=== PATIENT | male | born 1980 | race Caucasian/White ===

== ENCOUNTER 2020-08-20 20:43 | Emergency (ER) | payer OTHER, MEDICAID ==
[~2020-08-20] VITALS: Ht 182.9 cm; Wt 59.0 kg
[2020-08-20 20:50] VITALS: BP 132/76
--- NOTE | 2020-08-20 21:47 | NUR ---
BIBA TO ER BED 13
--- NOTE | 2020-08-20 21:55 | NUR ---
PT PLACED IN ED HALLWAY BED 13 INFRONT OF NURSING STATION. PT WITHIN SIGHT.
--- NOTE | 2020-08-20 22:00 | NUR ---
40 Y/O MALE BIBA FROM [facility] FOR REFUSING WOUND CARE AND TREATMENT FROM FACILITY. PT PRESENTS LAYING IN BED. HE REPORTS BEING PARAPLEGIC. LUNG SOUNDS WERE CLEAR THROUGHOUT. HERAT WAS EVEN AND REGULAR. PT NOTED ONLY ABLE TO MOVE UPPER EXTREMITIES WITHOUT ANY DIFFICULTY. PATIENT BED WAS LOCKED AND PLACED IN LOWEST POSITION. IN ED HALLWAY IN FRONT OF NURSING STAION IN SIGHT OF PRIMARY NURSE. pmhx: PARAPLEGIA, sepsis,focal wounds, muscle spasms & CHRONIC PAIN. allx: PCN
--- NOTE | 2020-08-20 22:45 | NUR ---
PT REFUSED BLOOD CULTURES AT THIS TIME STATING, "NO I DONT WANT YOU TO STICK ME I AM IN PAIN". NOTIFIED DR. HURTADO NOTIFIED AGREED TO SPEAK WITH PT.
--- NOTE | 2020-08-20 23:03 | NUR ---
ER MD DR. HURTADO EVALUATING PT.
[2020-08-20] MEDS ORDERED: LORazepam 2 MG/ML VIAL IVP ONE (23:05)
--- NOTE | 2020-08-20 23:05 | NUR ---
PT AGREED TO BLOOD CULTURES AT THIS TIME CALLED AND SPOKE TO LAB FOR RE-ATTEMPT OF REDRAW.
[2020-08-20 23:30] LABS: BASOPHILS # (AUTO) 0.1 K/uL (0.00-0.22); BASOPHILS % (AUTO) 0.7 % (0.0-2.0); EOSINOPHILS # (AUTO) 0.1 K/uL (0-0.4); EOSINOPHILS % (AUTO) 0.7 % (0.0-4.0); HEMATOCRIT 37.7 % (36-52); HEMOGLOBIN 12.4 g/dL (12.0-18.0); LYMPHOCYTES # (AUTO) 0.9 K/uL (2.0-11.5); LYMPHOCYTES % (AUTO) 7.4 % (20.5-51.1); MEAN CORPUSCULAR HEMOGLOBIN 27 pg (27-31); MEAN CORPUSCULAR HGB CONC 33 g/dL (33-37); MEAN CORPUSCULAR VOLUME 82.8 fL (80-94); MONOCYTES # (AUTO) 0.7 K/uL (0.8-1.0); MONOCYTES % (AUTO) 6.2 % (1.7-9.3); NEUTROPHILS # (AUTO) 10.2 K/uL (1.8-7.7); PLATELET COUNT (AUTO) 361 K/uL (140-450); RED BLOOD CELL COUNT(AUTO) 4.56 MIL/uL (4.20-6.10); RED CELL DISTRIBUTION WIDTH 18.5 % (11.6-13.7)
--- NOTE | 2020-08-20 23:30 | NUR ---
GEOGRAPHY DEPARTMENT CHAIR MIRANDA AT BEDSIDE FOR BLOOD DRAWN.
[2020-08-20 23:55] LABS: CARBON DIOXIDE 27.6 mmol/L (21-32); CREATININE 0.8 mg/dL (0.6-1.3); POTASSIUM 3.6 mmol/L (3.5-5.1); TOTAL BILIRUBIN 0.3 mg/dL (0.0-1.0)
[2020-08-21 00:03] LABS: APPEARANCE,URINE CLOUDY (CLEAR); BILIRUBIN,URINE 2+ (NEGATIVE); BLOOD, URINE 3+ (NEGATIVE); COLOR,URINE YELLOW (YELLOW); LEUKOCYTE ESTERASE ,URINE 2+ (NEGATIVE); NITRITE, URINE POSITIVE (NEGATIVE); UGLUCOSE NEGATIVE (NEGATIVE)
[2020-08-21 00:19] LABS: RBC,URINE 11-20 (MOD) /HPF (0-5); WBC,URINE TOO MANY TO COUNT /HPF (0-5)
[2020-08-21 00:21] LABS: YEAST,URINE Moderate /HPF (None Seen)
[2020-08-21] MEDS ORDERED: cefTRIAXone 1,000 MG VIAL ONE ×2 (00:45→08:21)
--- NOTE | 2020-08-21 01:20 | NUR ---
ER MD DR. HURTADO RE-EVALUATING PT.
[2020-08-21] MEDS ORDERED: FLUCONAZOLE 100 MG TAB PO ONE (01:25)
[2020-08-21] MEDS ORDERED: LORazepam 2 MG/ML VIAL IVP ONE ×3 (01:25→14:35)
[2020-08-21] MEDS ORDERED: CRUSHER, PILL MC ONE (01:36)
--- NOTE | 2020-08-21 01:46 | NUR ---
PT LAYING IN SEMI-FOWLERS POSITION IN ED HALLWAY BED 13 IN NO ACUTE DISTRESS NOTED BREATHING EVEN AND UNLABORED EVIDENCE BY RISE AND FALL OF CHEST WALL. VSS, HE IS AWAKE ALERT AND ORIENTED. COLOSTOMY BAG CHANGED AT THIS TIME. PT WAS NOTED WITH LARGE AMOUNT OF DARK BROWN COLOR STOOL SOFT IN CONSISTENCY. PT IS AT SIGHT OF NURSING STATION. WILL CONTINUE TO MONITOR.
--- NOTE | 2020-08-21 03:51 | NUR ---
PT LAYING IN SEMI-FOWLERS POSITION IN ED HALLWAY BED 13 IN NO ACUTE DISTRESS NOTED BREATHING EVEN AND UNLABORED EVIDENCE BY RISE AND FALL OF CHEST WALL. VSS, HE IS AWAKE ALERT AND ORIENTED. PT IS WITHIN SIGHT OF NURSING STATION. WILL CONTINUE TO MONITOR.
[2020-08-21 05:22] VITALS: BP 110/80
--- NOTE | 2020-08-21 05:23 | NUR ---
PT PENDING D/C AT THIS TIME. [facility] UNWILLING TO TAKE PATIENT BACK WILL REFER PT TO CASE MANAGEMENT FOR POSSIBLE PLACEMENT OF CARE. WILL ENDORSE TO AM PRIMARY NURSE.
--- NOTE | 2020-08-21 05:53 | NUR ---
EMPTIED PT'S CRONIN CATHETER WITH APPROXIMATELY 400 ML OF DARK URINE. NO FOUL ODOR.
--- NOTE | 2020-08-21 07:15 | NUR ---
Pharmacy contacted for rocephin 1000mg vials for 709 medication administration. Will administer when stocked.
--- NOTE | 2020-08-21 07:27 | NUR ---
REPORT GIVEN TO KATLIN HUGGINS FOR CONTINUITY OF CARE.
--- NOTE | 2020-08-21 07:27 | NUR ---
Received report from BHAVNA Nicole. Transfer of care at this time.
--- NOTE | 2020-08-21 07:38 | NUR ---
Pt sleeping, no sgns of distress at this time. Case management to be called by 0900 to follow-up for placement. Pending discharge.
--- NOTE | 2020-08-21 08:35 | NUR ---
Case Management Note: BUILDING SERVICES COORDINATOR placed call to X[place] [facility] inquire why this pt would not be accepted back. Xochitl states that she will work on a DC plan for pt and call CM or BUILDING SERVICES COORDINATOR back with a response.
--- NOTE | 2020-08-21 09:15 | NUR ---
Pt requesting ativan, Dr. Huntley made aware.
--- NOTE | 2020-08-21 10:15 | NUR ---
Pt states he is in "agony", requests pain medication, ERMD made aware.
[2020-08-21] MEDS ORDERED: KETOROLAC 60 MG/2 ML VIAL IM ONE (10:35)
[2020-08-21] MEDS ORDERED: LORazepam 2 MG/ML VIAL ONE (10:52)
--- NOTE | 2020-08-21 11:32 | NUR ---
Gave report to Meir HUGGINS, [facility] for pending transfer. manager benefit organized pt to be picked up by 1400. Room [address]A with Dr. Medeiros. [phone].
--- NOTE | 2020-08-21 15:25 | NUR ---
Patient to be transferred to [facility]. Is being transferred due to receiving care. Receiving facility has accepting physician Dr. Medeiros and available space room 47A. ER physician has signed transfer form. Patient or responsible constitution party has agreed to transfer and signed form. Patient belongings inventoried and will be sent with patient. Copy of nursing notes, lab reports, EKG, Physicians Orders and X-rays to be sent with patient. Report called to BHAVNA Worley at receiving facility. [facility] ambulance service has been called for transfer. ETA is 10-15minutes.
== END 2020-08-21 15:25 ==
LOC: MED 20:43
DX: N39.0 Urinary tract infection, site not specified (principal); B37.49 Other urogenital candidiasis; Z88.0 Allergy status to penicillin
CPT/HCPCS: 36415; 80053; 81001; 83605; 85025; 87040; 87086; 96365; 96375; 99284; J0696; J1885; J2060

== ENCOUNTER 2020-10-13 20:44 | Emergency (ER) | payer OTHER, MEDICAID ==
[~2020-10-13] VITALS: Ht 180.3 cm; Wt 57.6 kg
[2020-10-13 20:53] VITALS: BP 135/91
--- NOTE | 2020-10-13 20:53 | NUR ---
BIBA TAKEN TO BED #6
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
--- NOTE | 2020-10-13 21:11 | NUR ---
Dr. Pratt examining patient.
[2020-10-13] MEDS ORDERED: HYDROmorphone PFS 2 MG/ML SYR IVP STA (21:15)
[2020-10-13 21:45] LABS: BASOPHILS # (AUTO) 0.1 K/uL (0.00-0.22); BASOPHILS % (AUTO) 0.9 % (0.0-2.0); EOSINOPHILS # (AUTO) 0.2 K/uL (0-0.4); EOSINOPHILS % (AUTO) 2.1 % (0.0-4.0); HEMATOCRIT 37.5 % (36-52); HEMOGLOBIN 12.6 g/dL (12.0-18.0); LYMPHOCYTES # (AUTO) 2.3 K/uL (2.0-11.5); LYMPHOCYTES % (AUTO) 24.1 % (20.5-51.1); MEAN CORPUSCULAR HEMOGLOBIN 27 pg (27-31); MEAN CORPUSCULAR HGB CONC 34 g/dL (33-37); MEAN CORPUSCULAR VOLUME 79.9 fL (80-94); MONOCYTES # (AUTO) 1.1 K/uL (0.8-1.0); MONOCYTES % (AUTO) 10.8 % (1.7-9.3); NEUTROPHILS # (AUTO) 6.1 K/uL (1.8-7.7); NEUTROPHILS % (AUTO) 62.1 % (42.2-75.2); PLATELET COUNT (AUTO) 400 K/uL (140-450); RED CELL DISTRIBUTION WIDTH 16.1 % (11.6-13.7); WHITE BLOOD COUNT (AUTO) 9.7 K/uL (4.8-10.8)
[2020-10-13 22:06] LABS: ANION GAP 13.3 (8-16); CARBON DIOXIDE 26.1 mmol/L (21-32); CREATININE 0.7 mg/dL (0.6-1.3); POTASSIUM 3.4 mmol/L (3.5-5.1); TOTAL BILIRUBIN 0.2 mg/dL (0.0-1.0)
[2020-10-13] MEDS ORDERED: cefTRIAXone 1,000 MG VIAL ONE ×2 (22:22→22:31)
[2020-10-13] MEDS ORDERED: HYDROmorphone 1 MG/ML AMP ONE (22:22)
--- NOTE | 2020-10-13 22:23 | NUR ---
RECIEVED VERBAL ORDER TO CHANGE ADMINISTRATION ROUTE FROM IVP TO IM FOR DILUADID AND ROCEPHIN.
[2020-10-13] MEDS ORDERED: cefTRIAXone 1,000 MG in LIDOCAINE MPF 1% 2.1 ML IM ONE (22:25)
[2020-10-13] MEDS ORDERED: HYDROmorphone PFS 2 MG/ML SYR IM ONE (22:25)
[2020-10-13] MEDS ORDERED: LIDOCAINE MPF 1% 5 ML ONE (22:32)
--- NOTE | 2020-10-13 23:00 | NUR ---
PT ALREADY HAS CRONIN CATHETER IN PLACE, CLAMPED TUBING AND RETRIEVED URINE SAMPLE FROM PORT.
[2020-10-14 00:05] LABS: APPEARANCE,URINE CLOUDY (CLEAR); BILIRUBIN,URINE NEGATIVE (NEGATIVE); BLOOD, URINE NEGATIVE (NEGATIVE); COLOR,URINE YELLOW (YELLOW); LEUKOCYTE ESTERASE ,URINE 1+ (NEGATIVE); NITRITE, URINE POSITIVE (NEGATIVE); UGLUCOSE NEGATIVE (NEGATIVE)
[2020-10-14 00:17] LABS: RBC,URINE 0-5 /HPF (0-5)
--- NOTE | 2020-10-14 03:47 | NUR ---
PT COMPLAINING AND ASKING TO GET SENT HOME. REPORTS AN AMBULANCE WAS ARRANGED TO PICK HIM UP. ORIENTED PATIENT TO TREATMENT PLAN. NO OTHER COMPLAINTS AT THIS TIME. WILL CONTINUE TO MONITOR.
--- NOTE | 2020-10-14 06:55 | NUR ---
PT RESTING WELL IN BED, SIDE RAILS UP, CONNECTED TO CONTINUOUS MONITORING, PT WILL DESAT TO 93% BUT NO SIGNS OF DISTRESS.
--- NOTE | 2020-10-14 07:00 | NUR ---
REPORT RECEIVED FROM KENRICK RN. CONTINUATION OF CARE AT THIS POINT.
--- NOTE | 2020-10-14 07:15 | NUR ---
PT IN BED, CALM, EYES CLOSED, BREATHING EVEN AND UNLABORED. NO APPARENT DISTRESS. BED IN LOWEST POSITION, LOCKED, X2 SIDERAILS UP. WILL CONTINUE TO MONITOR.
--- NOTE | 2020-10-14 07:22 | NUR ---
NO SIGNS OF DISTRESS, PT IN STABLE CONDITION, ENDORSED TO DAYSHIFT NURSE FOR CONTINUITY OF CARE.
--- NOTE | 2020-10-14 07:57 | NUR ---
REPORT GIVEN TO LONG KARIMI FROM [facility] [place] REGARDING PATIENT STATUS. WAITING FOR TRANSPORTATION.
[2020-10-14 08:15] VITALS: BP 114/69
--- NOTE | 2020-10-14 08:17 | NUR ---
Patient discharged with v/s stable. Written and verbal after care instructions ABOUT URINARY TRACT INFECTION given and explained. Patient alert, oriented and verbalized understanding of instructions. Ambulance Transport with to group home. All questions addressed prior to discharge. ID band removed. Patient advised to follow up with PMD. Rx of LEVOFLOXACIN given. Patient educated on indication of medication including possible reaction and side effects. Opportunity to ask questions provided and answered.
== END 2020-10-14 08:17 ==
LOC: MED 20:44
DX: N39.0 Urinary tract infection, site not specified (principal); G82.20 Paraplegia, unspecified; R00.0 Tachycardia, unspecified
CPT/HCPCS: 36415; 80053; 81001; 85025; 87040; 87086; 96372; 99285; J0696; J1170; J2001